=== PATIENT | female | born 1990 | race African-American/Black ===

== ENCOUNTER 2021-12-17 18:23 | Emergency (ER) | payer OTHER ==
[~2021-12-17] VITALS: Ht 157.5 cm; Wt 90.5 kg
[2021-12-17 18:31] VITALS: BP 142/82
[2021-12-18] MEDS ORDERED: CEPH-558 PO (06:23)
[2021-12-18] MEDS ORDERED: SULF-261 PO (06:23)
== END 2021-12-17 23:45 | disposition left against medical advice (07) ==
LOC: EMS 18:35
DX: Z53.21 Procedure and treatment not carried out due to patient leaving prior to being seen by health care provider (principal)

== ENCOUNTER 2021-12-18 04:53 | Emergency (ER) | payer OTHER ==
[~2021-12-18] VITALS: Ht 157.5 cm; Wt 90.5 kg
[2021-12-18] MEDS ORDERED: SULF-261 PO (06:23)
[2021-12-18] MEDS ORDERED: CEPH-558 PO (06:23)
[2021-12-18 06:46] VITALS: BP 129/70
== END 2021-12-18 06:48 | disposition home or self-care (01) ==
LOC: EMS 04:54
DX: L02.411 Cutaneous abscess of right axilla (principal); F10.20 Alcohol dependence, uncomplicated; F17.210 Nicotine dependence, cigarettes, uncomplicated
CPT/HCPCS: 99283

== ENCOUNTER 2022-01-26 16:00 | Emergency (ER) | payer OTHER ==
[~2022-01-26] VITALS: Ht 157.5 cm; Wt 96.4 kg
[~2022-01-26 16:00] MED LIST: CEPH-558 PO; SULF-261 PO
[2022-01-26 16:11] VITALS: BP 131/85
== END 2022-01-26 20:30 | disposition left against medical advice (07) ==
LOC: EMS 16:02
DX: Z53.21 Procedure and treatment not carried out due to patient leaving prior to being seen by health care provider (principal)

== ENCOUNTER 2022-02-21 03:28 | Emergency (ER) | payer OTHER ==
[~2022-02-21] VITALS: Ht 157.5 cm; Wt 90.0 kg
[2022-02-21 03:37] VITALS: BP 148/55
[2022-02-21] MEDS ORDERED: IBUPROFEN 600 MG TABLET PO ONE (04:30)
[2022-02-21] MEDS ORDERED: DOXY50 PO (04:34)
[2022-02-21] MEDS ORDERED: DOXY-354 PO (12:47)
== END 2022-02-21 05:01 | disposition home or self-care (01) ==
LOC: EMS 03:28
DX: L73.2 Hidradenitis suppurativa (principal); F17.210 Nicotine dependence, cigarettes, uncomplicated
CPT/HCPCS: 99283

== ENCOUNTER 2022-06-13 13:43 | Emergency (ER) | payer OTHER ==
[~2022-06-13] VITALS: Ht 162.6 cm; Wt 90.9 kg
[~2022-06-13 13:43] MED LIST changes: +DOXY-354 PO; +DOXY50 PO
[2022-06-13 13:49] VITALS: BP 133/78
[2022-06-13] MEDS ORDERED: DOXY-354 PO (15:37)
== END 2022-06-13 16:14 | disposition home or self-care (01) ==
LOC: EMS 13:46
DX: L73.2 Hidradenitis suppurativa (principal); F17.210 Nicotine dependence, cigarettes, uncomplicated
CPT/HCPCS: 99282; Z7502

== ENCOUNTER 2022-06-13 17:47 | Emergency (ER) | payer OTHER ==
[~2022-06-13] VITALS: Ht 160 cm; Wt 95.5 kg
[2022-06-13 17:49] VITALS: BP 160/72
== END 2022-06-13 18:16 | disposition left against medical advice (07) ==
LOC: EMS 17:51
DX: Z53.21 Procedure and treatment not carried out due to patient leaving prior to being seen by health care provider (principal)
CPT/HCPCS: 99281; Z7502